=== PATIENT | female | born 1995 | race Caucasian/White ===

== ENCOUNTER 2020-01-30 18:39 | Outpatient (CLI) | payer BC ==
[~2020-01-30] VITALS: Ht 162.6 cm; Wt 86.4 kg
[~2020-01-30 18:39] MED LIST: BACTRIM DS 8001 TAB PO; BCP TD; BIRTH CONTROL; CEFTIN 250250 MG/TAB PO; CEFTIN250 M1 PO; CEFTIN500 MG PO; CEPHALEXIN500 M1 PO; MACROBID 1100 MG/CAP PO; NEXPLANON68 MG ID; NORCO 325 MG-51 TAB PO; PREDNISONE20 MG PO; PYRIDIUM200 M1 PO; SERTRALINE; TOPAKAX; ZOFRAN 4MG T4 MG/TAB PO
--- NOTE | 2020-01-30 18:50 | NUR ---
G1 at 35 weeks and 6 days arrives to unit with complaint of decreased movement. Pt reports she has felt baby move but not as much as usual over the last 2 days. Pt denies contractions, LOF, or vaginal bleeding. Denies headaches, blurry vision or RUQ pain. Pt oriented to room, call light within reach, bed in low and locked position. US and toco explained and applied. Intructed patient to feeling focus on trying to feel babies movements. Plan of care reviewed. Admission assessment started. Vital signs obtained.
[2020-01-30] MEDS ORDERED: LEXAPRO 10MG10 MG PO (19:11)
[2020-01-30] MEDS ORDERED: PRENATAL TABLET PO (19:12)
[2020-01-30 19:15] VITALS: BP 133/90; PULSE 105; TEMP 98.3
--- NOTE | 2020-01-30 19:40 | NUR ---
1914 - Pt reports feeling baby move since admission on unit. Moderate variability on FHR tracing noted but no true acceleration yet. Pt repositioned to right lateral and given apple juice to drink. 1939 - Category 1 FHR tracing obtained. Pt reports feeling more movement from baby. Denies any other complaints. Monitors removed. 1944 - Discharge instructions reviewed with patient and spouse, verbalized understanding. Pt and spouse seen ambulating off unit.
== END 2020-01-30 19:50 | disposition home or self-care (01) ==
LOC: LDRO 18:39 → LDR 19:08 → LDRO 19:50
DX: O36.8130 Decreased fetal movements, third trimester, not applicable or unspecified (principal); Z3A.35 35 weeks gestation of pregnancy
CPT/HCPCS: OP

== ENCOUNTER 2023-02-12 01:46 | Inpatient (IN) | payer BC ==
[2023-02-12] VITALS (31 sets, daily range): BP systolic 111–147; BP diastolic 64–92; PULSE 74–110; TEMP 97.4–98.4
[~2023-02-12] VITALS: Ht 162.6 cm; Wt 82.7 kg
[~2023-02-12 01:46] MED LIST changes: +IBU600 MG PO; +IMODIUM 2MG CAPS2 MG PO; +LEXAPRO 10MG10 MG PO; +LEXAPRO20 MG PO; +PERCOCET 325 MG1 TA2 PO; +PRENATAL TABLET PO
--- NOTE | 2023-02-12 01:55 | NUR ---
G2L1. 39.1. Ambulatory to LDR 6 with spouse and mother. Clean gown on. EFM and TOCO explained and applied. Pt states she has been jeanna since 1600 but her contractions have been 4-5 mins for the past hour. Denies leaking of fluids. Reports some bloody show and good movement. Plan of care explained.
[2023-02-12] MEDS ORDERED: AMOXICILLIN875 MG PO (02:09)
--- NOTE | 2023-02-12 03:05 | NUR ---
SVE 4-5/80/-2. Pt states she thinks her contractions are getting more intense. Plan of care explained. 0330: at nurses station and reviews FHR strip. See physican notification. Admit orders received. 0418: IV started and labs obtained via IV site. 0526: Pt requesting to ambulate in hallway. Pt off monitor at this time. 0605: Pt requesting an epidural at this time. LR bolus started infusing without difficulty. Tracy CAD OPERATOR notified. 0625: Report given to Morgan COOK.
[2023-02-12 04:47] LABS: BASO % 0.2 % (0.0-2.0); EOS % 0.3 % (0.0-4.0); GRAN # 6.8 K/mm3 (1.4-6.5); GRAN % 72.1 % (42.2-75.2); HEMOGLOBIN 12.1 g/dl (12.5-16.0); LYMPH # 1.8 K/mm3 (1.2-3.4); MEAN CELL VOLUME 90 fl (80.0-100.0); MEAN CORPUSCULAR HEMOGLOBIN 31 pg (27-31); MEAN CORPUSCULAR HGB CONC 35 g/dl (33.0-37.0); MEAN PLATELET VOLUME 9.4 fl (7.4-10.4); MONO # 0.7 K/mm3 (0.1-0.6); MONO % 7.8 % (1.7-9.3); PLATELET COUNT 206 K/mm3 (130-400); RED BLOOD COUNT 3.85 M/mm3 (4.10-5.30); REDCELL DISTRIBUTION WIDTH-CV 13.7 % (11.5-14.5)
[2023-02-12 04:50] LABS: HEMATOCRIT 34.5 % (37.0-47.0)
--- NOTE | 2023-02-12 06:55 | NUR ---
0643- PT REQUESTS SVE PRIOR TO EPIDURAL PLACEMENT, /-1 BULGING BAG. PT SAT UP AT SIDE OF BED FOR EPIDURAL PLACEMENT, Albert STEWART CRNA IN ROOM. 0651- TEST DOSE GIVEN BY Albert STEWART CRNA. PT TOLERATED WELL. 0655- REPOSITIONED TO SEMIFOWLERS FOLLOWING EPIDURAL PLACEMENT.
--- NOTE | 2023-02-12 07:30 | NUR ---
BURROUGHS PLACED, SVE OF 7-8/90/-1.
--- NOTE | 2023-02-12 07:30 | NUR ---
0720- PT VOMITING. 0724- ZOFRAN 4MG GIVEN IV. APPROXIMATELY 50 MLS EMESIS OUT.
--- NOTE | 2023-02-12 10:20 | NUR ---
0939- SVE OF COMPLETE/0. POSITIONED INTO [facility] TO LABOR DOWN. 0956- DR. LAGUNAS NOTIFIED OF SVE OF COMPLETE. START PUSHING WITH PT PER DR. LAGUNAS, HE IS COMING TO THE HOSPITAL FOR DELIVERY. 1000- BURROUGHS DC'D, 200MLS OUT. 1005- DR. LAGUNAS IN ROOM. PT PUSHING WITH THIS NURSE, DR. LAGUNAS OUT OF ROOM. 1009- DR. LAGUNAS RETURNS TO ROOM FOR DELIVERY. 1014- SPONTANEOUS VAGINAL DELIVERY OF VIABLE BABY BOY. BABY TO MOTHER'S CHEST, CORD CLAMPED BY DR. LAGUNAS AND CUT BY FOB. BABY CARES ASSUMED BY STAN,RN AND Otilia ESPINAL RN. 1019- SPONTANEOUS DELIVERY OF INTACT PLACENTA. PITOCIN STARTED AT 333MLS/HR PER PROTOCOL. BEGINS REPAIR OF 1ST DEGREE PERINEAL LACERATION AND LEFT VAGINAL WALL LACERATION. 1020- RECOVERY STARTED.
--- NOTE | 2023-02-12 13:15 | NUR ---
1305- EPIDURAL DC'D, TIP INTACT. PT AMBULATORY TO BATHROOM. ABLE TO VOID 1000MLS WITHOUT DIFFICULTY. ASSISTED WITH PERICARE. ICEPACK, PERIPAD, AND MESH UNDERWEAR APPLIED. CLEAN GOWN ON. 1315- PT AMBULATORY TO . ORIENTED TO ROOM. DENIES PAIN AND PAIN MEDS AT THIS TIME.
[2023-02-13 05:59] LABS: HEMATOCRIT 35.5 % (37.0-47.0); HEMOGLOBIN 11.5 g/dl (12.5-16.0)
[2023-02-13 08:05] VITALS: BP 121/78; PULSE 75; TEMP 97.9
== END 2023-02-13 12:40 | disposition home or self-care (01) | DRG 807 ==
LOC: LDRO 01:46 → LDR 03:51 → OB 13:15
PROVIDERS: Obstetrics & Gynecology; ADMIT Obstetrics & Gynecology
PROC: 10E0XZZ Delivery of Products of Conception, External Approach (ICD-10-PCS; principal; 2023-02-12)
PROC: 0HQ9XZZ Repair Perineum Skin, External Approach (ICD-10-PCS; 2023-02-12)
DX: O76 Abnormality in fetal heart rate and rhythm complicating labor and delivery (principal); Z37.0 Single live birth; O99.344 Other mental disorders complicating childbirth; F41.9 Anxiety disorder, unspecified; Z3A.39 39 weeks gestation of pregnancy; O70.0 First degree perineal laceration during delivery
CPT/HCPCS: J2405; J2590; J7120

== ENCOUNTER 2024-01-10 09:01 | Day surgery (SDC) | payer BC ==
[~2024-01-10] VITALS: Ht 160 cm; Wt 65.9 kg
[~2024-01-10 09:01] MED LIST changes: +AMOXICILLIN875 MG PO
[2024-01-10 09:27] LABS: COLLECTION METHOD CLEAN CATCH
[2024-01-10 09:30] LABS: BASO % 0.2 % (0.0-2.0); EOS % 0.4 % (0.0-4.0); GRAN # 8.5 K/mm3 (1.4-6.5); HEMATOCRIT 41.5 % (37.0-47.0); HEMOGLOBIN 14.5 g/dl (12.5-16.0); LYMPH # 1.9 K/mm3 (1.2-3.4); MEAN CELL VOLUME 90 fl (80.0-100.0); MEAN CORPUSCULAR HEMOGLOBIN 31 pg (27-31); MEAN CORPUSCULAR HGB CONC 35 g/dl (33.0-37.0); MEAN PLATELET VOLUME 9.2 fl (7.4-10.4); MONO # 0.4 K/mm3 (0.1-0.6); PLATELET COUNT 261 K/mm3 (130-400); RED BLOOD COUNT 4.63 M/mm3 (4.10-5.30); REDCELL DISTRIBUTION WIDTH-CV 11.8 % (11.5-14.5)
[2024-01-10] MEDS ORDERED: LR 1,000 ML IV ONE (09:30)
[2024-01-10] MEDS ORDERED: Ondansetron 4 MG/2 ML VIAL IV ONE (09:30)
[2024-01-10 09:36] LABS: URINE APPEARANCE CLEAR (CLEAR/HAZY); URINE BLOOD TRACE (NEGATIVE); URINE COLOR YELLOW (YELLOW); URINE GLUCOSE NEGATIVE (NEGATIVE); URINE KETONE NEGATIVE (NEGATIVE); URINE NITRATE NEGATIVE (NEGATIVE); URINE PROTEIN(semi-quant) TRACE (NEGATIVE)
[2024-01-10 09:47] LABS: BILIRUBIN,TOTAL 0.6 mg/dL (0.2-1.2); C-REACTIVE PROTEIN 3.42 mg/dL (0.00-0.50); CALCIUM 9.9 mg/dL (8.4-10.2); CREATININE, serum 0.73 mg/dL (0.57-1.11); POTASSIUM 3.4 mmol/L (3.5-4.5); TOTAL PROTEIN 7.9 gm/dL (6.2-8.1)
[2024-01-10] MEDS ORDERED: Iohexol 300 - 100 ML VIAL IV ONE (10:06)
[2024-01-10] MEDS ORDERED: NS 100 ML IV SCH (10:12)
[2024-01-10] MEDS ORDERED: Morphine 4 MG/ML VIAL IV ONE (10:30)
[2024-01-10] MEDS ORDERED: Rocuronium 50 MG/5 ML Multi-Dose VIAL ONE (12:14)
[2024-01-10] MEDS ORDERED: Lidocaine PF 2% (20 MG/ML) 5 ML VIAL ONE (12:14)
[2024-01-10] MEDS ORDERED: fentaNYL 50 MCG/ML 5 ML VIAL ONE (12:14)
[2024-01-10] MEDS ORDERED: LR 1,000 ML IV SCH (12:30)
[2024-01-10] MEDS ORDERED: dexAMETHasone 10 MG/ML VIAL ONE (12:56)
[2024-01-10] MEDS ORDERED: Ondansetron 4 MG/2 ML VIAL ONE (12:56)
[2024-01-10] MEDS ORDERED: Ondansetron 4 MG/2 ML VIAL IV PRN ×2 (13:00→13:30)
[2024-01-10] MEDS ORDERED: fentaNYL 50 MCG/ML 2 ML VIAL IV PRN (13:00)
[2024-01-10] MEDS ORDERED: HYDROmorphone 2 MG/1 ML VIAL IV PRN (13:00)
[2024-01-10] MEDS ORDERED: droPERidol 2.5 MG/ML 2 ML VIAL IV PRN (13:00)
[2024-01-10] MEDS ORDERED: Meperidine 50 MG/ML 1 ML VIAL IV PRN (13:00)
[2024-01-10] MEDS ORDERED: Morphine 4 MG/ML VIAL IV PRN (13:00)
[2024-01-10] MEDS ORDERED: Neostigmine 1 MG/ML 10 ML Multi-Dose Vial ONE (13:15)
[2024-01-10] MEDS ORDERED: Glycopyrrolate 0.2 MG/ML 1 ML VIAL ONE (13:15)
[2024-01-10] MEDS ORDERED: Topical Skin Adhesive 1 EACH (1 ML) TOP ONE (13:24)
[2024-01-10] MEDS ORDERED: NORCO 325 MG-51 TAB PO (13:29)
[2024-01-10] MEDS ORDERED: Ibuprofen 600 MG TAB PO PRN (13:30)
[2024-01-10] MEDS ORDERED: Acetaminophen 325 MG TAB PO PRN (13:30)
[2024-01-10] MEDS ORDERED: HYDROmorphone 2 MG/1 ML VIAL IV ONE ×3 (13:42→13:55)
[2024-01-10 14:12] VITALS: BP 132/91; PULSE 96; TEMP 97.5
--- NOTE | 2024-01-10 14:13 | NUR ---
PATIENT ALERT AND ORIENTED X4. VSS. PATIENT HERE FOR LAP APPY. LAP SITES X3 CDI WITH SKIN GLUE. PATIENT UP TO FLOOR AT APPROXIMATELY 1400. POST OP VITALS RUNNING. POST OP FLUIDS FINISHED. PATIENT DENIES N/V, PO INTAKE OKAY. PATIENT DENIES ANY PAIN AT THIS TIME. CALL LIGHT IN REACH.
--- NOTE | 2024-01-10 16:09 | NUR ---
DISCHARGE INSTRUCTIONS PROVIDED. PATIENT EDUCATION GIVEN. IV DC'D. PATIENT TOLERATED PO. VOIDED. ONE HOUR OF POST OP VITALS. PATIENT DENIES ANY PAIN AT THIS TIME. FOLLOW UP APPOINTMENT DISCUSSED. MEDICATIONS REVIEWED. PATIENT AND DENY AND QUESTIONS OR CONCERNS. PATIENT ESCORTED OUT VIA WHEELCHAIR.
== END 2024-01-10 16:10 | disposition home or self-care (01) ==
LOC: COL.ER 09:01 → SURG 12:48 → SDCO 12:48 → SURG 12:49 → EDBEDREQ 13:29 → SDCO 16:10 → SURG 16:10
PROVIDERS: Family Medicine
DX: K35.80 Unspecified acute appendicitis (principal)
CPT/HCPCS: OP; G0378; J1100; J1170; J2270; J2405; J2543; J2704; J2710; J3010; J7120; Q9967